=== PATIENT | female | born 1975 | race Caucasian/White ===

== ENCOUNTER 2022-04-03 08:15 | Day surgery (SDC) | payer BC ==
[2022-04-03] VITALS (10 sets, daily range): BP systolic 111–129; BP diastolic 62–74; PULSE 79–104; TEMP 98.1–98.5
[~2022-04-03] VITALS: Ht 167.6 cm; Wt 72.5 kg
--- NOTE | 2022-04-03 18:45 | NUR ---
Pt up recently from [place]. She is alert and oriented with no pain complaints. Pt tolerating ice water. She is currently eating her dinner with no complaints of nausea. DRSG is CDI with matt wrap in place. HEVER to bulb suction. Pts is at bedside. SCDs on bilaterally. No needs, call light within reach
--- NOTE | 2022-04-03 21:08 | NUR ---
Patient A/Ox4, VSS, NAD, with elastic bandage dressing to chest CDI, INT to RH, torelated her dinner, denies pain at this time, call light and personal items within reach, will continue to monitor.
[2022-04-04 03:31] VITALS: BP 105/61; PULSE 72; TEMP 98.7
[2022-04-04 07:58] VITALS: BP 116/66; PULSE 80; TEMP 98
--- NOTE | 2022-04-04 10:47 | NUR ---
Initial visit; Patient and family thanked [employer] Operations [employer] Member for looking in on her and offering encouragement and prayer. [employer] Operations [employer] Member offered God's blessings and to keep her in Ground Operations [employer] Member's prayers.
--- NOTE | 2022-04-04 10:48 | NUR ---
SERGE met with the patient, her (Martin, ph#[phone]), and mother to discuss discharge plan. The patient lives in [place] with her and their two children. She reports independence with ADLs and does not have any DME. The patient's primary care provider is Stephanie Emery APRN and she plans to obtain her medications from the [facility]. The patient does not have a DPOA-HC in EMR, but she states that she does have one completed and that it designates her . The patient plans to return home with her family upon discharge. No additional needs at this time. *Discharge plan: home with family*
[2022-04-04 11:15] VITALS: BP 125/71; PULSE 81; TEMP 98.3
[2022-04-04] MEDS ORDERED: NORCO 325 MG-51 TAB PO (13:01)
== END 2022-04-04 13:48 | disposition home or self-care (01) ==
LOC: SDCO 08:15 → SURG 17:40 → SDCO 04-04 13:48
DX: C50.412 Malignant neoplasm of upper-outer quadrant of left female breast (principal)
CPT/HCPCS: OP; A9520; J0690; J1100; J1170; J2250; J2405; J2704; J2795; J3010; J7120